=== PATIENT | male | born 1935 | race Hispanic/Latino ===

== ENCOUNTER 2016-08-25 15:41 | Emergency (ER) | payer MEDICARE ==
[2016-08-25 16:11] LABS: Bilirubin,Urine NEG (Negative); Blood,Urine NEG (Negative); Ketones,Urine NEG (Negative); Leukocyte Esterase,Urine NEG (Negative); Mucus,Urine FEW /HPF; Nitrite,Urine POS (Negative); Protein,Urine <15 mg/dL mg/dL (Negative)
[2016-08-25 16:19] LABS: Eosinophils % (Auto) 5.9 % (0.0-4.3); Mean Corpuscular HGB Conc 34 % (32-34); Mean Corpuscular Hemoglobin 32 pg (28-32); Mean Corpuscular Volume 94 fl (84-94); Platelet Count 171 K/mm3 (140-440); Red Blood Count 4.45 M/mm3 (3.65-5.03); Red Cell Distribution Width 14.1 % (13.2-15.2); White Blood Count 3.9 K/mm3 (4.5-11.0)
[2016-08-25 16:42] LABS: Alanine Aminotransferase 28 units/L (7-56); Albumin 4.4 g/dL (3.9-5); Albumin/Globulin Ratio 1.7 %; Alkaline Phosphatase 58 units/L (35-129); Anion Gap 18 mmol/L; BUN/Creatinine Ratio 15.55; Bilirubin,Total 0.3 mg/dL (0.1-1.2); Blood Urea Nitrogen 14 mg/dL (9-20); Carbon Dioxide 27 mmol/L (22-30); Chloride 100.6 mmol/L (98-107); Glucose 109 mg/dL (75-100); Lipase 53 units/L (13-60); Potassium 4.6 mmol/L (3.6-5.0); Sodium 141 mmol/L (137-145)
--- NOTE | 2016-08-25 20:38 | Emergency Department Report ---
ED Male HPI - General Chief complaint: Abdominal Pain Stated complaint: BLADDER INFECTION Source: patient Mode of arrival: Ambulatory Limitations: No Limitations - History of Present Illness Initial comments: Pt is a 80-year-old male who presents to ED complaining of painful urination 2 days. Patient states yesterday he started experience pain with urination and urinary frequency. Patient denies nausea/vomiting or diarrhea. Patient states he has taken [id number] Azo pills per has no relief. Patient states he is passing through and on his way to [place] and decided to stop and be seen here. Patient reports only taken warfarin once a day Patient denies fevers/chills/nausea/vomiting/chest pain/shortness of breath/ abdominal pain/testicular pain/scrotum pain/ penile Discharge. - Related Data Home Medications Medication Instructions Recorded Confirmed Last Taken Warfarin [Coumadin] 5 mg PO QDAY 08/25/16 08/25/16 Unknown Previous Rx's Medication Instructions Recorded Last Taken Type Amoxicillin/K Clav Tab [Augmentin 1 tab PO Q12HR #14 tab 08/25/16 Unknown Rx 875 mg] Allergies Allergy/AdvReac Type Severity Reaction Status Date / Time sulfamethoxazole Allergy Swelling Verified 08/25/16 15:48 [From Bactrim] trimethoprim [From Bactrim] Allergy Swelling Verified 08/25/16 15:48 ED Review of Systems ROS: Stated complaint: BLADDER INFECTION Other details as noted in HPI Constitutional: denies: chills, fever Eyes: denies: eye pain, eye discharge, vision change ENT: denies: ear pain, throat pain Respiratory: denies: cough, shortness of breath, wheezing Cardiovascular: denies: chest pain, palpitations Endocrine: no symptoms reported Gastrointestinal: denies: abdominal pain, nausea, diarrhea Genitourinary: dysuria, frequency. denies: urgency, hematuria, testicular pain , testicular mass Musculoskeletal: denies: back pain, joint swelling, arthralgia, myalgia Skin: denies: rash, lesions, pruritus Neurological: denies: headache, weakness, numbness, paresthesias, confusion, abnormal gait Psychiatric: denies: anxiety, depression Hematological/Lymphatic: denies: easy bleeding, easy bruising ED Past Medical Hx - Past Medical History Previous Medical History?: Yes Hx of Cancer: Yes (prostate cancer) Additional medical history: central tremor. PE - Surgical History Past Surgical History?: Yes Additional Surgical History: prostates cancer - Social History Smoking Status: Never Smoker Substance Use Type: None - Medications Home Medications: Home Medications Medication Instructions Recorded Confirmed Last Taken Type Amoxicillin/K Clav Tab [Augmentin 1 tab PO Q12HR #14 tab 08/25/16 Unknown Rx 875 mg] Warfarin [Coumadin] 5 mg PO QDAY 08/25/16 08/25/16 Unknown History ED Physical Exam - General Limitations: No Limitations General appearance: alert, in no apparent distress - Head Head exam: Present: atraumatic, normocephalic - Eye Eye exam: Present: normal appearance, PERRL, EOMI Pupils: Present: normal accommodation - ENT ENT exam: Present: normal exam, mucous membranes moist - Neck Neck exam: Present: normal inspection, full ROM. Absent: tenderness, meningismus, lymphadenopathy - Respiratory Respiratory exam: Present: normal lung sounds bilaterally. Absent: respiratory distress, wheezes, rales, rhonchi, stridor - Cardiovascular Cardiovascular Exam: Present: regular rate, normal rhythm. Absent: systolic murmur, diastolic murmur, rubs, gallop - GI/Abdominal GI/Abdominal exam: Present: soft, normal bowel sounds. Absent: distended, tenderness, guarding, rebound, rigid, mass, bruit, pulsatile mass, hernia - Rectal Rectal exam: Present: deferred - Extremities Exam Extremities exam: Present: normal inspection, full ROM, normal capillary refill. Absent: tenderness, calf tenderness - Back Exam Back exam: Present: normal inspection, full ROM. Absent: tenderness, CVA tenderness (R), CVA tenderness (L) - Neurological Exam Neurological exam: Present: alert, oriented X3, CN II-XII intact, normal gait - Psychiatric Psychiatric exam: Present: normal affect, normal mood - Skin Skin exam: Present: warm, dry, intact, normal color. Absent: rash ED Course Vital Signs 08/25/16 15:48 Temperature 97.8 F Pulse Rate 63 Respiratory 18 Rate Blood Pressure 157/75 O2 Sat by Pulse 95 Oximetry ED Medical Decision Making - Lab Data Result diagrams: 08/25/16 16:10 08/25/16 16:10 - Medical Decision Making 80-year-old male presents with uncomplicated urinary tract infection. ED course: Patient's blood pressure mildly elevated otherwise vital signs stable. Patient received 0.2 mg of Catapres. Vital signs prior to discharge stable blood pressure reduced to 163/70. She states he has no history of blood pressure and seems to be upset because he has not eating today and has been eating to be seen. Patient denies headache, blurry vision,dizziness or any other symptoms. Patient to be discharged home with Augmentin 875/125 mg twice a day. She has no other complaints and states to follow-up with his family care once in [place]. Patient verbally states to understands and will follow instructions. Critical care attestation.: If time is entered above; I have spent that time in minutes in the direct care of this critically ill patient, excluding procedure time. ED Disposition Clinical Impression: Cystitis, unspecified without hematuria UTI (urinary tract infection) Qualifiers: Urinary tract infection type: acute cystitis Hematuria presence: without hematuria Qualified Code(s): N30.00 - Acute cystitis without hematuria Disposition: DISCHARGED TO HOME OR SELFCARE Is pt being admited?: No Does the pt Need Aspirin: No Condition: Stable Instructions: Urinary Tract Infection in Men (ED), Dysuria (ED) Additional Instructions: Take your medication as prescribed. Make sure to take all medication. You can take Motrin as needed for pain and follow-up primary care doctor once in [place] Prescriptions: Amoxicillin/K Clav Tab [Augmentin 875 mg] 1 tab PO Q12HR #14 tab Forms: Work/School Release Form(ED) Time of Disposition: 22:48
[2016-08-25] MEDS ORDERED: CATAPRES PO ONE ×2 (21:20→21:38)
[2016-08-25 22:36] VITALS: BP 163/70
== END 2016-08-25 22:36 | disposition home or self-care (01) ==
LOC: ED 15:41
DX: N30.90 Cystitis, unspecified without hematuria (principal); N30.00 Acute cystitis without hematuria; Z85.46 Personal history of malignant neoplasm of prostate
CPT/HCPCS: 36415; 80053; 81001; 83690; 85025; 99283